=== PATIENT | male | born 1990 | race Caucasian/White ===

== ENCOUNTER 2019-01-17 00:35 | Emergency (ER) | payer BC ==
[2019-01-17] MEDS ORDERED: Metoclopramide 10 MG/2 ML SDV IVPUSH ONE (00:39)
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
[2019-01-17] MEDS ORDERED: Dextrose 5%-0.9% NaCl 1,000 ML IV SCH (00:45)
[2019-01-17] MEDS ORDERED: LORazepam 2 MG/ML SDV IVPUSH ONE (00:59)
--- NOTE | 2019-01-17 08:13 | CT ---
Head CT Technique: Multiple axial sections through the brain were obtained. Intravenous contrast was not utilized. Comparison: No prior intracranial imaging. Findings: Ventricles along with basal cisterns and sulci over the convexities are within normal limits for age. No abnormal parenchymal densities are seen. No evidence of intracranial hemorrhage. No midline shift or mass effect is seen. Bone window settings were reviewed which show no acute calvarial abnormality. Visualized sinuses are clear. Impression: 1. Nothing acute is seen on two-view chest x-ray. Diagnostic code #1 I agree with preliminary report from ad, finalized on 01/17/19, 2:57 AM Central Time
== END 2019-01-17 08:18 | disposition home or self-care (01) ==
LOC: JD.ED 00:35
DX: S00.31XA Abrasion of nose, initial encounter (principal); F10.920 Alcohol use, unspecified with intoxication, uncomplicated; R11.14 Bilious vomiting; Y04.8XXA Assault by other bodily force, initial encounter; Y90.8 Blood alcohol level of 240 mg/100 ml or more; Y92.838 Other recreation area as the place of occurrence of the external cause
CPT/HCPCS: 36415; 70450; 80053; 80306; 82150; 83735; 85007; 85027; 96361; 96374; 96375; 99284; G0480; J2060; J2765; J7042; 99285